=== PATIENT | female | born 1975 | race Caucasian/White ===

== ENCOUNTER → 2023-03-02 | Outpatient (CLI) | payer BC, OTHER ==
--- NOTE | 2023-03-03 20:12 | MM ---
Reason for Exam: Screening (asymptomatic). Patient History: Menarche at age 12. First Full-Term at age 19. Hormonal Contraceptives, from age 14 until age 19. Cyst Aspiration on the Left side. Risk Values: Grecia 5 year model risk: 0.8%. NCI Lifetime model risk: 7.5%. Prior Study Comparison: No prior studies available for comparison. Tissue Density: The breast tissue is heterogeneously dense. This may lower the sensitivity of mammography. Findings: Analyzed By CAD. Underlying areas of bilateral nodularity suggests a benign pattern. Further evaluation with ultrasound is recommended as no priors are available for comparison. The patient's 1997 prior has been purged. No suspicious calcification or other discrete abnormalities. Overall Assessment: Incomplete: need additional imaging evaluation, BI-RAD 0 Management: Diagnostic Breast Ultrasound of both breasts. . [facility] will attempt to contact patient to return for supplemental views and ultrasound if indicated. Electronically signed and approved by: Winnie Melendrez M.D. Radiologist
== END | disposition home or self-care (01) ==
LOC: RADMAMWWP 08:55
PROVIDERS: ATTEND Internal Medicine Geriatric Medicine
DX: Z12.31 Encounter for screening mammogram for malignant neoplasm of breast (principal)
CPT/HCPCS: 77063; 77067

== ENCOUNTER → 2023-03-11 | Outpatient (CLI) | payer BC, OTHER ==
--- NOTE | 2023-03-11 12:12 | USB ---
Reason for Exam: Additional evaluation requested from abnormal screening. Patient History: Menarche at age 12. First Full-Term at age 19. Hormonal Contraceptives, from age 14 until age 19. Cyst Aspiration on the Left side. Risk Values: Grecia 5 year model risk: 0.8%. NCI Lifetime model risk: 7.5%. Technique: Method: Whole Breast Handheld. Prior Study Comparison: 01/28/1998 Left Diagnostic Mammogram, [facility]. 03/02/2023 Bilateral MG 3D screening mammo w/cad, [facility]. Findings: The whole breast of both breasts, the axilla of both breasts and the retroareolar of both breasts were scanned. A complete US of all four quadrants of the both breasts, axilla, and retro-areolar region were reviewed. Right: 1. Numerous small scattered cysts are present throughout. 2. At the 2:00 position, 5 cm from the nipple, there is a dominant, benign 1.3 cm cyst. 3. AT THE 3:00 POSITION, 5 CM FROM THE NIPPLE, THERE IS A COMPLEX CYST VERSUS CYST CLUSTER MEASURING 8 X 7 X 5 MM. POSSIBLE INTERNAL 2 MM NODULARITY VERSUS CLUMPED UP DEBRIS. SIX-MONTH FOLLOW-UP TO REASSESS. 4. At the 11:00 position, 5 cm from the nipple, a benign 1.0 cm cyst. 5. Otherwise, no suspicious solid lesion or axillary lymphadenopathy. Left: 1. At the 1:00 position, 6 cm from the nipple, there is an elongated 1.3 x 0.9 x 0.4 cm cyst cluster. 2. At the 1:00 position, 6 cm from the nipple, 2 adjacent benign cysts measuring up to 1.2 cm. 3. At the 10:00 position, 6 cm from the nipple, benign 1.0 cm cyst. 4. Additional scattered smaller cysts are present throughout. 5. Otherwise, no suspicious solid lesion or axillary lymphadenopathy. Overall Assessment: Probably benign, BI-RAD 3 Management: Diagnostic Mammogram of both breasts in 6 months. Diagnostic Breast Ultrasound of the right breast in 6 months. A clinical breast exam by your physician is recommended on an annual basis and results should be correlated with mammographic findings. This exam should not preclude additional follow-up of suspicious palpable abnormalities. Results were given to the patient verbally at the time of exam. Electronically signed and approved by: Winnie Melendrez M.D. Radiologist
== END | disposition home or self-care (01) ==
LOC: RADUSWWP 10:53
PROVIDERS: ATTEND Internal Medicine Geriatric Medicine
DX: N60.01 Solitary cyst of right breast (principal); N60.02 Solitary cyst of left breast; R92.8 Other abnormal and inconclusive findings on diagnostic imaging of breast

== ENCOUNTER → 2023-11-25 | Outpatient (CLI) | payer BC, OTHER ==
--- NOTE | 2023-11-25 07:57 | MM ---
Reason for Exam: Follow-up at short interval from prior study. Last screening mammogram was performed 9 month(s) ago. Patient History: Menarche at age 12. First Full-Term at age 19. Hormonal Contraceptives, from age 14 until age 19. Cyst Aspiration on the Left side. Risk Values: Grecia 5 year model risk: 0.8%. NCI Lifetime model risk: 7.4%. Prior Study Comparison: 01/28/1998 Left Diagnostic Ultrasound, [facility]. 01/28/1998 Left Diagnostic Mammogram, [facility]. 03/02/2023 Bilateral MG 3D screening mammo w/cad, [facility]. 03/11/2023 Bilateral US breast workup RIA, [facility]. Tissue Density: The breasts are heterogeneously dense, which may obscure small masses. Findings: Analyzed By CAD. Chronic nodularity seen bilaterally. Benign calcifications noted bilaterally without suspicious cluster seen. Overall Assessment: Incomplete: need additional imaging evaluation, BI-RAD 0 Management: Diagnostic Breast Ultrasound of the right breast. . Results were given to the patient verbally at the time of exam. Patient should continue monthly self-breast exams. A clinical breast exam by your physician is recommended on an annual basis. This exam should not preclude additional follow-up of suspicious palpable abnormalities. Note on Grecia scores and lifetime risk: 1. A Grecia score greater than 3% is considered moderate risk. If this is the case, consider specialist referral to assess eligibility for a risk reducing agent. 2. If overall lifetime risk for the development of breast cancer is 20% or higher, the patient may qualify for future screening with alternating mammogram and breast MRI. [facility], , 11/25/2023 7:54 AM. Electronically signed and approved by: Wild Weathers M.D. Radiologis
--- NOTE | 2023-11-25 08:22 | USB ---
Reason for Exam: Follow-up at short interval from prior study. Patient History: Menarche at age 12. First Full-Term at age 19. Hormonal Contraceptives, from age 14 until age 19. Cyst Aspiration on the Left side. Risk Values: Grecia 5 year model risk: 0.8%. NCI Lifetime model risk: 7.4%. Technique: Method: Targeted. Prior Study Comparison: 01/28/1998 Left Diagnostic Mammogram, [facility]. 03/02/2023 Bilateral MG 3D screening mammo w/cad, [facility]. Findings: The upper section of the breast of the right breast, the axilla of the right breast and the retroareolar of the right breast were scanned. Multiple simple appearing cysts are redemonstrated all which appear slightly smaller in size. There is a cystic internal debris however appropriate through transmission at the right 11:00 position measuring 6 mm versus 1 cm previously. No solid masses identified. Overall Assessment: Benign, BI-RAD 2 Management: Screening Mammogram of both breasts in 1 year. A clinical breast exam by your physician is recommended on an annual basis and results should be correlated with mammographic findings. This exam should not preclude additional follow-up of suspicious palpable abnormalities. Results were given to the patient verbally at the time of exam. [facility], , 11/25/2023 8:20 AM. Electronically signed and approved by: Wild Weathers M.D. Radiologis
== END | disposition home or self-care (01) ==
LOC: RADMAMWWP 07:29
PROVIDERS: ATTEND Internal Medicine Geriatric Medicine
DX: R92.8 Other abnormal and inconclusive findings on diagnostic imaging of breast
CPT/HCPCS: 77062; 77066